=== PATIENT | female | born 1985 | race Caucasian/White ===

== ENCOUNTER 2024-12-28 16:27 | Outpatient (CLI) | payer OTHER, SELFPAY ==
--- NOTE | ~2024-12-28 | MM_ITS ---
EXAMINATION: MM screening sloane BI w kaye HISTORY: Screening TECHNIQUE: Craniocaudal and mediolateral oblique 3-D tomosynthesis images were obtained and synthetic 2-D images were generated. CAD analysis was submitted and interpreted. COMPARISON: Baseline BREAST PARENCHYMAL COMPOSITION: The breasts are heterogeneously dense, which may obscure small masses. FINDINGS: There is no evidence of suspicious mass, calcification, or architectural distortion in either breast to suggest malignancy. IMPRESSION: 1. No mammographic evidence of malignancy. Recommend routine screening mammography in one year. BI-RADS Category 1: Negative Reviewed, dictated and finalized at location Q. IMPRESSION: 1. No mammographic evidence of malignancy. Recommend routine screening mammogra phy in one year. BI-RADS Category 1: Negative
--- OUTSIDE RECORDS SUMMARY | 2024-12-28 16:39 | XMS_ITS | Clinical Summary ---
Author Organization [facility] Address [address] [place] [address] Care Team Providers Care Gardening Supervisor Name Role Phone Unavailable Primary Care Provider Unavailabl e Social History Tobacco Use Types Packs/Day Years Used Date Smoking Tobacco: Never Assessed Comments Unknown Sex and Gender Information Value Date Recorded Sex Assigned at Not on file Legal Sex Female 5:00 PM CDT Gender Identity Not on file Sexual Orientation Not on file Plan of Treatment Health Maintenance Due Date Last Done Comments Cervical Cancer Screening Pa p Smear (Age 30 to 64) Every 3 Years 1984 Annual Physical 12/05/1987 Hepatitis C 2002 DTaP, Tdap and Td Vaccines ( 1 - Tdap) 12/05/2003 Hepatitis B Vaccines (1 of 3 - 19+ 3-dose series) 12/05/2003 HPV Vaccines (1 - 3-dose SCD M series) 12/05/2011 Cervical Cancer Screening Pa p with HPV Testing (Age 30 to 64) Every 5 Years 2014 Cervical Cancer Screening with HPV 2014 Mammogram Screening 2024 COVID-19 Vaccine (2023-2 5 season) 2024 Meningococcal B Vaccine Aged Out No l onger eligible based on patient's age to complete this topic Meningococcal Vaccine Aged Out No jeremy robin eligible based on patient's age to complete this topic Pneumococcal Vaccine: Pediat rics (0 to 5 Years) and At-Risk Patients (6 to 49 Years) Aged Out No longer eligible b ased on patient's age to complete this topic RSV Immunizations Under 20 Months Aged Out No longer eligible based on patient's age to complete this topic
--- OUTSIDE RECORDS SUMMARY | 2024-12-28 16:39 | XMS_ITS | Clinical Summary ---
Author Organization [facility] [address] [facility] Address [address] [place] [address] Care Team Providers Care Staff Software Engineer Name Role Phone Fabiana Valladares Primary Care Provider [phone] Allergies Active Allergy Reactions Criticality Noted Date Comments Amoxicillin Unknown 01/24/2020 Penicillins Rash Medium 05/17/2008 Stomach pains Stomach pains As an Had a reaction? Medications SUMAtriptan (IMITREX) 100 mg tabletIndicatio ns:Migraine Take 1 tablet (100 mg total) by mouth once as needed for migraine May repeat after 2 hours. 27 tablet 3 01/24/2020 Active Turqoz, 28, 0.3-30 mg-mcg per tablet TAKE 1 ACTIVE TABLET DAILY CONTINUOUS. DO NOT TAKE PLACEBO TABLETS 84 tablet 4 09/15/2024 Active Active Problems Problem Noted Date Diagnosed Date Influenza vaccine needed 02/18/2024 Assessment & Plan (02/18/2024 9:41 PM CDT): Flu vaccine updated in the office Lipid screening 02/18/2024 Assessment & Plan (02/18/2024 9:41 PM CDT): Check labs Fatigue 02/18/2024 Assessment & Plan (02/18/2024 9:42 PM CDT): Probably multifactorial. Check labs and followup to re-evaluate Diabetes mellitus screening 02/18/2024 Assessment & Plan (02/18/2024 9:42 PM CDT): Check labs BMI 29.0-29.9,adult 02/07/2024 Assessment & Plan (02/07/2024 2:47 PM CDT): Weight/BMI is in healthy range. Continue healthy lifestyle to maintain. Breakthrough bleeding on OCPs 07/20/2021 Assessment & Plan (02/01/2023 9:06 PM CDT): Bleeding has pretty much resolved with the OCP. Happy with the low adjust stroke. Able to go 12-16 weeks on and then have a cycle. Refills to pharmacy. Patient is not a smoker Assessment & Plan (01/26/2022 4:56 PM CDT): Breakthrough bleeding has resolved by do a. Every 12 weeks. Will continue this regimen. Patient is not a smoker even she is over 35 so advise she can stay control pills through 49 year 51 years old. Assessment & Plan (07/20/2021 4:50 PM CDT): Suspect spotting/breakthrough bleeding is due to trying to do continuous OCP. She had done great on the low just roll but started spotting after about 6 months of being on the pill. Recommend continuing the pill but to take the placebo pills for the next 3 packs. She can then follow-up and will make sure that things have stabilized and then may try to return back to possibly 12 week continuous break for a. We can return to continuous if she tolerates the span well. Wrote this out for her and she fully understands. Has refills available at the pharmacy Other fatigue 01/26/2020 Assessment & Plan (02/18/2024 9:41 PM CDT): Probably multifactorial. Check labs and followup to re-evaluate Assessment & Plan (01/26/2020 12:44 PM CDT): Probably multifactorial. Check labs and followup to re-evaluate Annual physical exam 01/26/2020 Assessment & Plan (02/18/2024 9:41 PM CDT): Encouraged healthy lifestyle, good nutrition and exercise. Encouraged Calcium and Vitamin D and weight bearing exercise for bone health. Reviewed immunizations Reviewed age appropirate screenings. Assessment & Plan (02/01/2023 9:07 PM CDT): Encouraged healthy lifestyle, good nutrition and exercise. Encouraged Calcium and Vitamin D and weight bearing exercise for bone health. Reviewed immunizations Reviewed age appropirate screenings. Assessment & Plan (01/26/2022 4:55 PM CDT): Encouraged healthy lifestyle, good nutrition and exercise. Encouraged Calcium and Vitamin D and weight bearing exercise for bone health. Reviewed immunizations Reviewed age appropirate screenings. Assessment & Plan (01/23/2021 9:06 PM CDT): Encouraged healthy lifestyle, good nutrition and exercise. Encouraged Calcium and Vitamin D and weight bearing exercise for bone health. Reviewed immunizations Reviewed age appropirate screenings. Assessment & Plan (01/26/2020 12:43 PM CDT): Encouraged healthy lifestyle, good nutrition and exercise. Encouraged Calcium and Vitamin D and weight bearing exercise for bone health. Reviewed immunizations Reviewed age appropirate screenings. Migraine with aura and witho ut status migrainosus, not intractable 04/09/2019 Assessment & Plan (02/18/2024 9:41 PM CDT): Migraines have been more stable with continuous OCP Assessment & Plan (02/01/2023 9:05 PM CDT): Stable with current treatment regimen OCP definitely helps. Excedrin continues to take the edge off and has Flexeril p.r.n. if needed. Assessment & Plan (01/26/2022 4:55 PM CDT): Migraines are well control with continuous OCP. Has a headache usually around time of her placebo dose every 12 weeks but has not even needed Imitrex at this point. Will continue this regimen and reassess as needed. Assessment & Plan (07/20/2021 4:47 PM CDT): Significant control with OCP. Wants to continue but corrected bleeding. Assessment & Plan (01/23/2021 9:06 PM CDT): Headaches have improved with control pills. However she still seems to have breakthrough during her cycle week. She is currently on a monophasic 21 day pill. She is unsure of the brand so she is going to call in the morning with that and I will change the directions to do continuous pills without placebo is dispense 4. Packs with 3 refills. Will monitor and see if her headaches resolve with the continuous estrogen. She still has refills of Imitrex available. She still has Flexeril to use as needed Assessment & Plan (01/26/2020 12:45 PM CDT): Continue with triptan. Refills sent If feels more like the tension can use flexeril prn. Conitnue with the PT/massage. Assessment & Plan (01/12/2020 6:05 PM CDT): A refill for sumatriptan was sent to the pharmacy per her request. Recommended follow-up with PCP if symptoms don't improve with treatment, ER if symptoms worsen or new symptoms development. Assessment & Plan (05/26/2019 3:[address] STENOGRAPHER): Migraines are still not well controlled. ANTOINE respond to the Sumatriptan but still having too many ANTOINE. Not sure of triggers but may have a component of tension related to stress. Discussed prophylaxis options like BB or Topamax vs SSRI for stress. Concerned BB may drop her already low bp. Reviewed Topamax and would need to stop breast feeding to consider. Willing to consider SSRI. Reviewed risks, benefit, alternatives, side effects and proper use and specifically with breast feeding. Reviewed can pass from breast milk to baby. Reviewed minimal data on production but pt is planning to stop in the next month. Originally discussed Lexapro but after further investigation with , decided on Zoloft. Left message with patient regarding the change. Called Pharmacy and completed the change. Assessment & Plan (04/09/2019 10:[address] STENOGRAPHER): Increased frequency of migraines. Discussed treatment options, prevention and triggers. Unable to really identify triggers other than maybe sleep deprivation. Having difficulty getting midrin. Reviewed risks, benefit, alternatives, side effects and proper use of Imitrex and recommendations with breast feeding. Will try. Keep ANTOINE diary and if continues to increase frequency or not responding to Imitrex may consider prevention medication. Resolved Problems Problem Noted Date Diagnosed Date Resolved Date BMI 30.0-30.9,adult 09/29/2023 10/10/19 24 BMI 29.0-29.9,adult 02/01/2023 10/10/19 24 Assessment & Plan (04/12/2023 7:[address] STENOGRAPHER): Weight/BMI is in healthy range. Continue healthy lifestyle to maintain. Assessment & Plan (02/01/2023 10:10 AM CDT): Weight/BMI is in healthy range. Continue healthy lifestyle to maintain. Need for immunization against influenza 02/01/2023 02/18/2024 Assessment & Plan (02/01/2023 9:07 PM CDT): Flu vaccine updated in the office today Stress 02/01/2023 02/18/2024 Assessment & Plan (10/10/2023 7:44 AM CDT): Persistent stress symptoms that have been well controlled with the Lexapro. Continue 10 mg. Refills available at pharmacy Assessment & Plan (04/12/2023 8:[address] STENOGRAPHER): Patient is tolerating the Lexapro well and seen improvement. Would like to continue with same dose. Refills sent to pharmacy Assessment & Plan (02/01/2023 9:07 PM CDT): This is a significant, separately identifiable problem that was evaluated and managed on the same day as the wellness exam Patient is having increased stress around her daughter working on a diagnosis. She feels overwhelmed and stressed and difficulty being on at home due to outbreaks. She is considering counseling. Her daughter is already in counseling and working with a psychiatrist as well as her hand scudder. very supportive. Discussed adding Lexapro to see if it will just take the edge off. Reviewed risks benefits alternatives side effects and proper use. Follow-up in 4-6 weeks to reassess or sooner for any other problems or concern Right ear pain 06/30/2022 02/01/2023 Need for vaccination 01/26/2022 023 Assessment & Plan (01/26/2022 4:57 PM CDT): Flu vaccine updated in office today Spotting 07/20/2021 02/18/2024 Assessment & Plan (07/20/2021 4:51 PM CDT): Negative UPT in the office. Suspect spotting/breakthrough bleeding is due to trying to do continuous OCP. She had done great on the low just roll but started spotting after about 6 months of being on the pill. Recommend continuing the pill but to take the placebo pills for the next 3 packs. She can then follow-up and will make sure that things have stabilized and then may try to return back to possibly 12 week continuous break for a. We can return to continuous if she tolerates the span well. Wrote this out for her and she fully understands. Has refills available at the pharmacy BMI 28.0-28.9,adult 07/08/2021 02/02/20 23 Assessment & Plan (01/26/2022 4:56 PM CDT): Weight/BMI is in healthy range. Continue healthy lifestyle to maintain. Assessment & Plan (07/08/2021 1:05 PM CDT): Weight/BMI is in healthy range. Continue healthy lifestyle to maintain. BMI 26.0-26.9,adult 01/23/2021 07/09/19 22 Assessment & Plan (01/23/2021 3:11 PM CDT): Weight/BMI is in healthy range. Continue healthy lifestyle to maintain. Need for immunization against influenza 01/23/2021 01/26/2022 Assessment & Plan (01/23/2021 9:05 PM CDT): Updated in office today Flu vaccine need 01/26/2020 01/23/2021 Assessment & Plan (01/26/2020 12:44 PM CDT): Updated in office Lipid screening 01/26/2020 01/23/2021 Assessment & Plan (01/26/2020 12:44 PM CDT): Check labs Diabetes mellitus screening 01/26/2020 01/23/2021 Assessment & Plan (01/26/2020 12:44 PM CDT): Check labs BMI 27.0-27.9,adult 01/24/2020 01/24/20 21 Assessment & Plan (01/26/2020 12:43 PM CDT): Weight/BMI is in healthy range. Continue healthy lifestyle to maintain. Breast feeding status of mother 04/09/2019 01/23/2021 Assessment & Plan (05/26/2019 3:[address] STENOGRAPHER): See documentation under Migraine Assessment & Plan (04/09/2019 10:[address] STENOGRAPHER): Breast feeding. BMI 27.0-27.9,adult 04/06/2019 01/24/20 20 Assessment & Plan (05/26/2019 8:[address] STENOGRAPHER): Weight/BMI is in healthy range. Continue healthy lifestyle to maintain. Assessment & Plan (04/06/2019 7:[address] STENOGRAPHER): Weight/BMI is in healthy range. Continue healthy lifestyle to maintain. Flu vaccine need 01/23/2019 04/09/2019 Immunizations Immunization Administration Dates Next Due Influenza, Quadrivalent, Spl it, Preservative Free, Intramuscular 02/01/2023,01/26/2022,01/23/2021,01/23,01/23/2019,02/09/2018,02/20/2015 Influenza, Trivalent, IM (MDV) 7,02/13/2013,01/21/2012,02/14,01/10/2010 Influenza, Trivalent, Preser vative Free, Intramuscular 02/07/2024,01/30/2016 Tdap 09/14/2018,04/26/2015,02/20/2015 Surgical History Surgery Date Site/Laterality Comments WISDOM TOOTH EXTRACTION Medical History Medical History Date Comments Migraines August 2012 Family History Medical History Relation Name Comments Congenital heart disease Brother 1 Early Brother 2 Artur Volkmar Cancer Father Sonny Wylie Skin cancer Father Sonny Wylie Endometriosis Mother Migraines Mother Relation Name Status Comments Brother 1 Alive Brother 2 Artur Volkmar Father Sonny Wylie Alive Mother Alive Social History Tobacco Use Types Packs/Day Years Used Date Smoking Tobacco: Never Smokeless Tobacco: Never Tobacco Cessation:Counseling Given: Not Answered Alcohol Use Standard Drinks/Week Comments Yes 0 (1 standard drink = 0.6 oz pur e alcohol) AUDIT-C Answer Date Recorded Q1: How often do you have a drink containing alc ohol? 2-4 times a month 02/01/2023 Q2: How many drinks containi ng alcohol do you have on a typical day when you are drinking? 1 or 2 02/01/2023 Q3: How often do you have si x or more drinks on one occasion? Monthly 02/01/2023 PHQ-2 Answer Date Recorded PHQ-2 Total Score (If total score is 3 or more points, staff should administer the PHQ-9) 0 02/07/2024 Comments Unknown Sex and Gender Information Value Date Recorded Sex Assigned at Not on file Legal Sex Female 11:[address] STENOGRAPHER Gender Identity Not on file Sexual Orientation Not on file Occupation Industry Job Start Date Job End Date Principle- [employer] Not on file Not on f ile Not on file Obstetrics History Last Filed Vital Signs Vital Sign Reading Time Taken Comments Blood Pressure 121/82 08/01/2024 8:16 AM CDT Pulse 79 08/01/2024 8:16 AM CDT Temperature 36.7 C (98.1 F) 08/01/2024 8:16 AM CDT Respiratory Rate 18 08/01/2024 8:16 AM CDT Oxygen Saturation 99% 08/01/2024 8:16 AM CDT Inhaled Oxygen Concentration - - Weight 83.5 kg (184 lb) 08/01/2024 8:16 AM CDT Height 167.6 cm (5' 5.98) 08/01/2024 8:16 AM CD T Body Mass Index 29.71 08/01/2024 8:16 AM CDT Plan of Treatment Health Maintenance Due Date Last Done Comments Breast Cancer Screening-Mammogram 1984 Hepatitis C Screening 1984 Varicella Vaccines (1 of 2 - 13+ 2-dose series) 1997 Hepatitis B Screening 2002 HPV Vaccines (1 - 3-dose SCDM series) 12/05/2011 Cervical Cancer Screening 10/07/2023 10/06/2022 Influenza Vaccine (#1) 2024 , 02/01/2023, 01/26/2022, Additional history exists Depression Screening 02/06/2025 02/07/2024, 09/29/2023, 04/12/2023, Additional history exists Regular Well Visit/Exam 18-64 02/06/2025 02/07/2024, 02/01/2023, 01/26/2022, Additional history exists DTaP/Tdap/Td Vaccine (4 - Td or Tdap) 09/14/2028 09/14/2018, 04/26/2015, 02/20/2015 Pneumococcal vaccine <65 Aged Out No longer eligible based on patient's age to complete this topic Procedures Procedure Name Priority Date/Time Associated Diagnosis Comments HM PAP SMEAR WITH HPV Routine 10/06/2022 2:28 PM CDT from Last 3 Months or Most Recently Relevant to Health Maintenance Results * HM PAP SMEAR WITH HPV (10/06/2022 2:28 PM CDT) us Historical Provider HEALTH MAINTENANCE Edited Result - Final from Last 3 Months or Most Recently Relevant to Health [place] [address] [facility] [place] [address] [facility] [place] [address] Care Teams Staff Software Engineer Relationship Specialty Start Date End Date Fabiana Valladares PA [address] [place] [address] PCP - General Internal Medicine 01/04/19
--- OUTSIDE RECORDS SUMMARY | 2024-12-28 16:39 | XMS_ITS | Clinical Summary ---
Author Organization [facility] Address [address] [place] [address] Care Team Providers Care Valve Steamer Name Role Phone Unavailable Primary Care Provider Unavailabl e Source Comments [facility],non-owned Affiliates and Associated Physician Practices is amultiple site organization consisting of ambulatory clinics and hospital sitesin [place], [place] and [place]. This disclosure is being madepursuant to the Care Everywhere program and may not contain all information available regarding this patient. Last updated 18.[facility] Allergies Active Allergy Reactions Criticality Noted Date Comments Amoxicillin 01/15/2009 Stomach pains Penicillins 01/15/2009 Stomach pains Medications * Be aware that medications may not be up to date on this document. Alwaysverify current medications with the patient. levonorgestrel (MIRENA) 20 MCG/24HR IUD 1 Device by Intrauterine route once. 2 Active Active Problems Problem Noted Date Diagnosed Date Encounter for health-related screening 9 Overview (07/24/2017): Adult Abstraction Problem List Screening Dexa Scan (Bone Density): Result: Pap Smear: 04/23/2012 neg 03/13/11 neg 01/30/10 ascus hpv neg 01/15/09 neg, Cellular changes assoc w/ inflamm. 09/2007 -neg Hx :2006 - Abn- colpo- neg- all paps wnl since Mammogram: Result: CF Test: Result: IMO update 07 25 2017 Family History Medical History Relation Name Comments Cancer Father melanoma Relation Name Status Comments Father Alive Maternal Grandfather Alive Maternal Grandmother Alive Mother Alive Paternal Grandfather Paternal Grandmother Alive Social History Tobacco Use Types Packs/Day Years Used Date Smoking Tobacco: Never Smokeless Tobacco: Never Alcohol Use Standard Drinks/Week Comments Yes 0.8 (1 standard drink = 0.6 oz p ure alcohol) Comments No Sex and Gender Information Value Date Recorded Sex Assigned at Not on file Legal Sex Female 7:41 AM PAPER LATCHER Gender Identity Not on file Sexual Orientation Not on file Last Filed Vital Signs Vital Sign Reading Time Taken Comments Blood Pressure 122/70 06/02/2012 1:57 PM PAPER LATCHER Pulse 64 06/02/2012 1:57 PM PAPER LATCHER Temperature - - Respiratory Rate - - Oxygen Saturation - - Inhaled Oxygen Concentration - - Weight 75.3 kg (166 lb) 06/02/2012 1:57 PM PAPER LATCHER Height 165.1 cm (5' 5) 06/02/2012 1:57 PM PAPER LATCHER Body Mass Index 27.62 06/02/2012 1:57 PM PAPER LATCHER Plan of Treatment Health Maintenance Due Date Last Done Comments LIPID TESTING 1984 MAMMOGRAM 1984 HIV SCREENING 12/05/1999 HEPATITIS C SCREENING 11/30/2002 DTAP/TDAP/TD VACCINES (1 - Tdap) 12/05/2003 HEPATITIS B VACCINE (1 of 3 - 19+ 3-dose series) 12/05/2003 HPV VACCINE (1 - 3-dose SCDM series) 12/05/2011 PAP SMEAR 02/21/2015 02/22/2012, 01/24, 01/30/2010, Additional history exists DEPRESSION SCREENING 04/26/2024 COVID-19 VACCINE ( season) 2024 INFLUENZA VACCINE (#1) 2024 ZOSTER VACCINE (1 of 2) 2034 HIB VACCINE Aged Out No longer eligi ble based on patient's age to complete this topic MENINGOCOCCAL (Group B) VACCINE SHARED DECISION-MAKING Aged Out No longer eligible based on patient's age to complete this topic MENINGOCOCCAL GROUPS A/C/Y/W VACCINE Aged Out No longer eligible based on patient's age to complete this topic PNEUMOCOCCAL VACCINE Aged Out No long er eligible based on patient's age to complete this topic Procedures Procedure Name Priority Date/Time Associated Diagnosis Comments PAP THINPREP REFLX HPV MRNA E6/E7 Routine 02/22/2012 2:43 PM CDT Well woman exam with routine gynecological exam from Last 3 Months or Most Recently Relevant to Health Maintenance Results * PAP THIN PREP REFLX HPV (PO REF LAB) (02/22/2012 2:43 PM CDT) Clinical Information [facility] Comment:Routine exam LMP [facility] Comment:[id number] Previous Pap [facility] Comment:[id number] NEG Prev. BX [facility] Comment:Information not prov ided Source [facility] Comment:Information not prov ided Statement of Adequacy [facility] Comment: Satisfactory for evaluation. Endocervical/transformation zone component absent. Interpretation/Resul t [facility] Comment:Negative for intraep ithelial lesion or malignancy. Comment [facility] Comment: This Pap test has been evaluated with computer assisted technology. Based on the cytology result, reflex High Risk HPV DNA testing was not performed. Ticket Manager [facility] Comment:KELLIE RICE(ASCP) Review Ticket Manager [facility] Comment: DEL CT(ASCP) Test Performed at: [facility] [address] [address] HOMER WING DO MICROSCOPIC CYTOLOGIC EXAMINATION OF SMEAR OF SPECIMEN FROM FEMALE GENITAL TRACT PREPARED USING PAPANICOLAOU TECHNIQUE / Unknown 02/22/2012 2:43 PM CDT 02/23/2012 10:35 PM CDT Norma Gillis MD LAB - PATHOLOGY/CYTOLOG Y ORDERABLES Final Result [facility] [id number] [place] [address] from Last 3 Months or Most Recently Relevant to Health [place] [address] [facility] [place] [address]
== END 2024-12-28 16:28 | disposition home or self-care (01) ==
LOC: ANHFOHIMG 16:37
PROVIDERS: PCP Physician Assistant; Visit Provider Obstetrics & Gynecology
DX: Z12.31 Encounter for screening mammogram for malignant neoplasm of breast (principal)
CPT/HCPCS: 77063; 77067